=== PATIENT | female | born 1970 | race African-American/Black ===

== ENCOUNTER 2019-10-20 16:45 | Emergency (ER) | payer OTHER ==
[~2019-10-20 16:45] MED LIST: Iopamidol-370 76% 500 ML 1 ML ONE
[2019-10-20 18:33] LABS: #Eosinphils 0.1 thou/uL (0.0-0.7); #Lymphocytes 1.8 thou/uL (1.20-3.40); #Monocytes 0.4 thou/uL (0.11-0.59); #Neutrophils 5.3 thou/uL (1.40-6.50); %Basophils 0.4 % (0.0-1.0); %Eosinophils 1.8 % (0.0-10.0); %Lymphocytes 23.1 % (21.0-51.0); %Monocytes 5.5 % (0.0-10.0); %Neutrophils 69.2 % (42.0-75.0); Hemoglobin 13.7 g/dL (12.0-16.0); Mean Corpuscular HGB CONC 31.7 g/dL (32.0-36.0); Mean Corpuscular Hemoglobin 27.7 pg (27.0-31.0); Mean Corpuscular Volume 87.4 fL (78.0-98.0); Mean Platelet Volume 9.2 fL (7.4-10.4); Platelet Count 240 thou/uL (130-400); RBC Distribution Width 13.2 % (11.5-14.5); Red Blood Cell (RBC) Count 4.96 mill/uL (4.20-5.40); White Blood Cell (WBC) Count 7.7 thou/uL (4.8-10.8)
[2019-10-20 18:51] LABS: BHCG - Serum Negative (NEGATIVE); Pregs Control Background? CLEAR/WHITE (CLR/WHITE); Pregs Control Bar Appear? YES (CONTROL BAR)
[2019-10-20 19:17] LABS: Bacteria/HPF None Seen HPF (None Seen); Bilirubin Negative (Negative); Blood, Urine Trace (Negative); Clarity Clear (Clear); Glucose, Urine (Dipstick) 50 mg/dL (Negative); Ketone, Urine Negative (Negative); Leukocyte Negative Leu/uL (Negative); Nitrite Negative (Negative); Protein, Urine (Dipstick) Negative (Neg-Trace); RBC/HPF 0-3 HPF (0-3); Specific Gravity, Urine 1.031 (1.002-1.036); Squamous Epithelial 0-3 HPF (0-3); Urobilinogen Normal mg/dL (Less than 2); WBC/HPF 0-3 HPF (0-3); pH, Urine 5.5 (5.0-9.0)
[2019-10-20 19:18] LABS: ALT (SGPT) 31 U/L (8-55); AST (SGOT) 24 U/L (5-34); Albumin 4.2 g/dL (3.5-5.0); Alkaline Phosphatase 82 U/L (40-110); Anion Gap 15 mmol/L (10-20); BUN (Urea Nitrogen) 14 mg/dL (7.0-18.7); Bilirubin, Total 0.2 mg/dL (0.2-1.2); Calc. Creatinine Clearance 0 mL/min (70-130); Calcium 9.2 mg/dL (7.8-10.44); Carbon Dioxide 25 mmol/L (22-29); Chloride 101 mmol/L (98-107); Estimated GFR-MDRD Greater than 90; Globulin 3.5 g/dL (2.4-3.5); Glucose 171 mg/dL (70-105); Lipase 46 U/L (8-78); Potassium 4.4 mmol/L (3.5-5.1); Protein, Total 7.7 g/dL (6.0-8.3); Sodium 137 mmol/L (136-145)
--- NOTE | 2019-10-20 19:31 | RAD ---
PA CHEST AND LEFT RIBS FOUR VIEWS: 10/20/19 HISTORY: Fell about a month ago reporting persistent pain. Heart size is within normal limits. Aorta is mildly tortuous. The lungs are clear of any infiltrates. No pneumothorax or pleural effusions. No rib fractures are visualized. IMPRESSION: No evidence of rib fracture. POS: OFF
[2019-10-20] MEDS ORDERED: Ketorolac Tromethamine 30 MG/ML VIAL ONE (20:06)
--- NOTE | 2019-10-20 20:12 | CT ---
CT ABDOMEN AND PELVIS PERFORMED WITH CONTRAST ENHANCEMENT: 10/20/19 HISTORY: Right sided abdomen pain. Pain for about three weeks. Patient fell about one month ago. The lung bases are clear. The liver shows diffuse fatty change. It measures 22 cm in length mainly re lated to a more elongated right lobe. Spleen and pancreas regions are unremarkable. Gallbladder has b een removed. Right and left adrenal glands and right and left kidneys are normal in size. No significant periaorti c or mesenteric adenopathy. CT of pelvis performed with contrast enhancement. The appendix is normal. No adenopathy. There is pro minence to the lower uterine segment. This could represent fibromatous change. Pelvic ultrasound on a nonemergent basis may be helpful. Review of osseous structures show marked degenerative disc narrowing at the L5-S1 level. IMPRESSION: 1. Diffuse fatty change of the liver which is borderline in size. 2. Normal appendix. 3. Prominent lower uterine segment. This could represent a fibromatous change. Pelvic ultrasound on a nonemergent basis would be recommended. POS: OFF
== END 2019-10-20 20:04 | disposition home or self-care (01) ==
LOC: ERS 16:45
DX: S20.212A Contusion of left front wall of thorax, initial encounter (principal); N85.8 Other specified noninflammatory disorders of uterus; E11.9 Type 2 diabetes mellitus without complications; I50.9 Heart failure, unspecified; V87.8XXA Person injured in other specified noncollision transport accidents involving motor vehicle (traffic), initial encounter
CPT/HCPCS: 74177; 80053; 81003; 81015; 83690; 84703; 85025; 96374; J1885; Q9967

== ENCOUNTER 2019-12-01 17:58 | Emergency (ER) | payer OTHER ==
[~2019-12-01 17:58] MED LIST changes: +Iopamidol 370 76% 100 ML VIAL ONE; -Iopamidol-370 76% 500 ML 1 ML ONE
--- NOTE | 2019-12-01 18:35 | RAD ---
PORTABLE CHEST: 12/01/19 HISTORY: Shortness of breath. History of CHF. COMPARISON: 03/19/13 film. FINDINGS: The lungs appear clear of infiltrate. Heart size within normal range and stable. Vascular markings wi thin normal range. IMPRESSION: No acute process identified. POS: AGW
[2019-12-01 19:17] LABS: #Basophils 0.1 thou/uL (0.0-0.2); #Eosinphils 0.1 thou/uL (0.0-0.7); #Lymphocytes 2.4 thou/uL (1.20-3.40); #Monocytes 0.5 thou/uL (0.11-0.59); #Neutrophils 4.9 thou/uL (1.40-6.50); %Basophils 1.2 % (0.0-1.0); %Eosinophils 1.4 % (0.0-10.0); %Lymphocytes 30.2 % (21.0-51.0); %Monocytes 5.9 % (0.0-10.0); %Neutrophils 61.4 % (42.0-75.0); Hemoglobin 13.2 g/dL (12.0-16.0); Mean Corpuscular HGB CONC 32.5 g/dL (32.0-36.0); Mean Corpuscular Hemoglobin 28.5 pg (27.0-31.0); Mean Corpuscular Volume 87.8 fL (78.0-98.0); Mean Platelet Volume 9.1 fL (7.4-10.4); Platelet Count 231 thou/uL (130-400); RBC Distribution Width 13.1 % (11.5-14.5); Red Blood Cell (RBC) Count 4.62 mill/uL (4.20-5.40); White Blood Cell (WBC) Count 7.9 thou/uL (4.8-10.8)
[2019-12-01 19:40] LABS: ALT (SGPT) 29 U/L (8-55); AST (SGOT) 23 U/L (5-34); Alkaline Phosphatase 73 U/L (40-110); Anion Gap 10 mmol/L (10-20); BUN (Urea Nitrogen) 15 mg/dL (7.0-18.7); Bilirubin, Total 0.2 mg/dL (0.2-1.2); Calc. Creatinine Clearance 0 mL/min (70-130); Calcium 9.1 mg/dL (7.8-10.44); Carbon Dioxide 29 mmol/L (22-29); Chloride 105 mmol/L (98-107); Estimated GFR-MDRD Greater than 90; Globulin 3.4 g/dL (2.4-3.5); Glucose 161 mg/dL (70-105); Lipase 285 U/L (8-78); Protein, Total 7.4 g/dL (6.0-8.3); Sodium 140 mmol/L (136-145)
[2019-12-01] MEDS ORDERED: Aspirin Chewable 81 MG TAB ONE (20:28)
--- NOTE | 2019-12-01 21:50 | CT ---
CT abdomen and pelvis with IV contrast HISTORY: Abdomen pain. Pancreatitis. COMPARISON: 10/20/2019. FINDINGS: Lung bases are clear. Gallbladder surgically absent. Liver remains upper limits of normal in size. Pancreas has a normal appearance. No enlarged lymph nodes or free fluid. Urinary bladder is unremarkable. No evidence of bowel obstruct ion or inflammation. IMPRESSION : Chronic-type findings are stable. No evidence of pancreatitis or other acute abnormality.
== END 2019-12-01 22:06 | disposition home or self-care (01) ==
LOC: ERS 17:58
DX: R00.2 Palpitations (principal); R79.89 Other specified abnormal findings of blood chemistry; I50.9 Heart failure, unspecified; E11.9 Type 2 diabetes mellitus without complications; Z79.899 Other long term (current) drug therapy
CPT/HCPCS: 36415; 71045; 74177; 80053; 83690; 83880; 84484; 85025; 93005; Q9967

== ENCOUNTER 2020-02-22 08:05 | Emergency (ER) | payer OTHER ==
--- NOTE | 2020-02-22 09:03 | RAD ---
Chest one view HISTORY: Dyspnea,. Cough. COMPARISON: 02/08/2020. FINDINGS: Cardiac silhouette and pulmonary vasculature are unremarkable. Mediastinum is midline. No lobar consolidation or evidence of pneumothorax. IMPRESSION : No abnormalities are demonstrated.
[2020-02-22 09:42] LABS: #Lymphocytes 1.5 thou/uL (1.20-3.40); #Monocytes 0.5 thou/uL (0.11-0.59); #Neutrophils 4.9 thou/uL (1.40-6.50); %Basophils 0.2 % (0.0-1.0); %Eosinophils 0.4 % (0.0-10.0); %Lymphocytes 21.3 % (21.0-51.0); %Neutrophils 71.1 % (42.0-75.0); Hemoglobin 13.3 g/dL (12.0-16.0); Mean Corpuscular HGB CONC 31.5 g/dL (32.0-36.0); Mean Corpuscular Hemoglobin 27.6 pg (27.0-31.0); Mean Corpuscular Volume 87.7 fL (78.0-98.0); Platelet Count 398 thou/uL (130-400); Red Blood Cell (RBC) Count 4.81 mill/uL (4.20-5.40); White Blood Cell (WBC) Count 6.9 thou/uL (4.8-10.8)
[2020-02-22 10:16] LABS: ALT (SGPT) 25 U/L (8-55); AST (SGOT) 23 U/L (5-34); Albumin 3.8 g/dL (3.5-5.0); Alkaline Phosphatase 61 U/L (40-110); Anion Gap 14 mmol/L (10-20); BUN (Urea Nitrogen) 12 mg/dL (7.0-18.7); Bilirubin, Total 0.3 mg/dL (0.2-1.2); Calc. Creatinine Clearance 0 mL/min (70-130); Calcium 9.1 mg/dL (7.8-10.44); Carbon Dioxide 25 mmol/L (22-29); Chloride 105 mmol/L (98-107); Globulin 3.9 g/dL (2.4-3.5); Glucose 160 mg/dL (70-105); Potassium 4.1 mmol/L (3.5-5.1); Protein, Total 7.7 g/dL (6.0-8.3); Sodium 140 mmol/L (136-145)
--- NOTE | 2020-02-22 12:29 | CT ---
EXAM: CT pulmonary angiogram with IV contrast and 3-D MIP reconstructions PROVIDED CLINICAL HISTORY: Dyspnea, Covid positive COMPARISON: 02/09/2020 FINDINGS: There is no evidence for central or segmental pulmonary embolus. Interval development of patchy areas of peripheral consolidation. No pleural fluid or pneumothorax apparent. Bilateral axillary lymph node enlargement is redemonstrated, similar to prior. No additional thoracic lymph node enlargement is evident. The airway appears patent and of normal caliber. The visualized portions of the upper abdomen demonstrate no acute findings. The osseous structures demonstrate no concerning lytic or blastic lesions. IMPRESSION: 1. No evidence for central or segmental pulmonary embolus. 2. Pulmonary parenchymal findings typical for Covid pneumonia. 3. Persistent axillary adenopathy.
== END 2020-02-22 13:53 | disposition home or self-care (01) ==
LOC: ERS 08:05
DX: U07.1 COVID-19 (principal); E11.9 Type 2 diabetes mellitus without complications; I50.9 Heart failure, unspecified; Z79.899 Other long term (current) drug therapy
CPT/HCPCS: 36415; 71045; 71275; 80053; 83880; 84484; 85025; 85379; 93005; 94760